=== PATIENT | female | born 1970 | race Caucasian/White ===

== ENCOUNTER 2024-07-02 17:36 | Emergency (ER) | payer OTHER, SELFPAY ==
--- NOTE | ~2024-07-02 | CT_ITS ---
EXAMINATION: CT brain wo con DATE: 07/02/2024 20:49 INDICATION: Head injury. TECHNIQUE: Computed tomography (CT) of the head was performed without intravenous contrast. The mA wa s adjusted according to patient size. Iterative reconstruction technique was employed. The dose-lengt h product was 681.00 mGy-cm. COMPARISON: None FINDINGS: There is no intracranial hemorrhage, acute infarction, or abnormal intracranial mass lesion . The ventricles are normal in size. The orbits are normal. The paranasal sinuses are clear. The mast oid air cells are normal. IMPRESSION: 1. Normal brain. Reviewed, dictated and finalized at location A. TRUCTION IRONWORKER IMPRESSION: 1. Normal brain.
--- NOTE | ~2024-07-02 | CT_ITS ---
EXAMINATION: CT facial & cervical spine wo DATE: 07/02/2024 20:50 INDICATION: Face pain. Neck pain. Fall. TECHNIQUE: Computed tomography (CT) of the maxillofacial region and cervical spine was performed with out intravenous contrast. Automated exposure control and iterative reconstruction technique were empl oyed. The dose-length product was 529.13 mGy-cm. COMPARISON: None FINDINGS: MAXILLOFACIAL CT: There is rightward deviation of the nasal septum. No fracture. The paranasal sinuses are clear. The m astoid air cells are normal. CERVICAL SPINE CT: There is 6 degrees levocurvature of cervical spine. Vertebral body heights are normal. There is mildl y decreased disc height at C3-C4 and severely decreased disc height at C4-C5 and C5-6. The following disc levels are specifically discussed: C2-C3: There is no uncovertebral joint osteoarthritis. There is no facet joint osteoarthritis. There is no neural foraminal stenosis. There is no central canal stenosis. C3-C4: There is mild bilateral uncovertebral joint osteoarthritis. There is mild left facet joint ost eoarthritis. There is no neural foraminal stenosis. There is mild central canal stenosis. C4-C5: There is severe bilateral uncovertebral joint osteoarthritis. There is mild bilateral facet abisai int osteoarthritis. There is mild bilateral neural foraminal stenosis. There is mild central canal st enosis. C5-C6: There is severe bilateral uncovertebral joint osteoarthritis. There is no facet joint osteoart hritis. There is mild bilateral neural foraminal stenosis. There is mild central canal stenosis. C6-C7: There is mild right uncovertebral joint osteoarthritis. There is no facet joint osteoarthritis . There is no neural foraminal stenosis. There is no central canal stenosis. C7-T1: There is no uncovertebral joint osteoarthritis. There is severe right and mild left facet join t osteoarthritis. There is mild right neural foraminal stenosis. There is no central canal stenosis. IMPRESSION: 1. No fracture 2. Severe cervical spondylosis. Reviewed, dictated and finalized at location A. RECLAIMER
--- NOTE | ~2024-07-02 | CT_ITS ---
EXAMINATION: CT soft tissue neck wo con DATE: 07/02/2024 20:50 INDICATION: Anterior neck pain. Fall. TECHNIQUE: Computed tomography (CT) of the neck was performed without intravenous contrast. Automated exposure control and iterative reconstruction technique were employed. The dose-length product was 5 42.99 mGy-cm. COMPARISON: None FINDINGS: There are no pathologically enlarged lymph nodes. There are calcifications in the palatine tonsils. The larynx is normal. The major salivary glands are normal. The mastoid air cells are normal . The paranasal sinuses are clear. There is severe cervical spondylosis. IMPRESSION: 1. No specific etiology for the patient's symptoms. Reviewed, dictated and finalized at location A. TS DOCTOR
[2024-07-02 18:05] VITALS: BP 147/86; PULSE 72; RESP 16; TEMP 36.5; O2SAT 97
--- NOTE | 2024-07-02 20:03 | ED.FALL ---
HPI - Fall General Chief Complaint: Fall Stated Complaint: GLF, pain to face and LEFT knee Time Seen by Provider: 07/02/24 20:02 Source: patient Mode of arrival: ambulatory Limitations: no limitations History of Present Illness HPI Narrative: This is a 53 year old female with chief complaint of ground level fall this evening. Patient reports that she tripped on at the curb going into the store this evening. Patient reports that she fell face 1st onto the concrete. Reports abrasions to the face, laceration to the inner lip. Denies LOC or numbness or weakness. Does endorse left knee pain and abrasion there as well. Reports difficulty swallowing, feels difficult to swallow at the base of the throat/neck. Related Data Allergies Allergy/AdvReac Type Severity Reaction Status Date / Time Sulfa (Sulfonamide Allergy Mild Rash Verified 07/02/24 17:38 Antibiotics) Review of Systems Review of Systems: All systems as dictated in HPI Exam Narrative: GENERAL: Well-appearing, well-nourished, and in no acute distress. HEAD: Normocephalic, atraumatic. EYES: PERRLA and EOMI. ENT: 1 cm laceration to the inner upper lip. It is not through and through. Nares clear, no rhinorrhea or epistaxis. Mucous membranes moist. Oropharynx without tonsillar hypertrophy exudate or other lesions. Tolerating secretions. NECK: Supple. No adenopathy or masses. CHEST: No respiratory distress. Clear to auscultation. No wheezes rales or rhonchi HEART: Regular rate and rhythm. No murmur heard. Normal peripheral pulses. ABDOMEN: Soft, nontender, nondistended, normal active bowel sounds. MSK: Normal range of motion. No edema. SKIN: Warm, dry, no rash. NEURO: Alert and oriented x4. No focal deficits. PSYCH: Normal mood and affect. Course Vital Signs Vital signs: Vital Signs Temperature 97.7 F 07/02/24 18:05 Pulse Rate 72 07/02/24 18:05 Respiratory Rate 16 07/02/24 18:05 Blood Pressure 147/86 H 07/02/24 18:05 Pulse Oximetry 97 07/02/24 18:05 Oxygen Delivery Room Air 07/02/24 18:05 Temperature 97.7 F 07/02/24 18:05 Pulse Rate 72 07/02/24 18:05 Respiratory Rate 16 07/02/24 18:05 Blood Pressure 147/86 H 07/02/24 18:05 Pulse Oximetry 97 07/02/24 18:05 Oxygen Delivery Room Air 07/02/24 18:05 MDM - Fall MDM Narrative Medical decision making narrative: This is a 53-year-old female who presents to the ED for chief complaint of a fall with neck pain and subsequent difficulty swallowing. Vitals are normal. Exam is remarkable for the above. She is maintaining airway and tolerating secretions. Conversational and resting comfortably. Imaging of brain, soft tissue neck and cervical spine are negative for acute findings. Patient will be discharged in stable condition. Supportive measures discussed and return precautions given. Patient is understanding and agreeable with plan for discharge with PCP follow-up. Discharge Plan Discharge Clinical Impression: Fall, Muscle spasm Patient Disposition: Home, Self-Care Condition: Stable Instructions: Antibiotic Form Additional Instructions: Your exam and imaging today are reassuring overall. Please take muscle relaxer as needed for muscle spasms. Use Tylenol and ibuprofen every 4-6 hours at home for pain as needed. If you have any new or worsening symptoms please return to the ER for further evaluation. Patient Language: Polish Prescriptions: New cyclobenzaprine 10 mg tablet 10 mg PO HS PRN (Reason: muscle spasm) Qty: 10 0RF Follow-up/Referrals: PHYSICIAN,FOOD DEHYDRATOR OPERATOR [Primary Care Provider] - Time of Disposition: 20:59
== END 2024-07-02 21:28 | disposition home or self-care (01) ==
LOC: ANHED 21:18
PROVIDERS: Emergency Provider Physician Assistant
DX: M62.838 Other muscle spasm (principal); M47.812 Spondylosis without myelopathy or radiculopathy, cervical region; W10.1XXA Fall (on)(from) sidewalk curb, initial encounter
CPT/HCPCS: 70450; 70486; 70490; 72125; 99284